=== PATIENT | male | born 1945 | race Caucasian/White ===

== ENCOUNTER → 2017-12-27 | Day surgery (SDC) | payer MEDICARE, OTHER ==
[2017-12-25 11:50] LABS: BASOPHILS % 0.7 % (0.0-1.0); EOSINOPHILS # (AUTO) 0.1 (0.0-0.4); EOSINOPHILS % 2.3 % (0.0-6.0); HEMATOCRIT 35.1 % (38.2-49.6); HEMOGLOBIN 12.5 g/dL (14.0-18.0); LYMPHOCYTES % 16.5 % (18.0-39.1); MEAN CORPUSCULAR HEMOGLOBIN 31.8 pg (28-32); MEAN CORPUSCULAR HGB CONC 35.6 g/dL (31-35); MEAN CORPUSCULAR VOLUME 89.3 fL (81-99); MONOCYTES # (AUTO) 0.6 (0.2-0.8); MONOCYTES % 9.1 % (4.4-11.3); NEUTROPHILS # (AUTO) 4.3 (2.1-6.9); NEUTROPHILS % 71.1 % (38.7-80.0); PLATELET COUNT 207 x10e3/uL (140-360); RED BLOOD COUNT 3.93 x10e6/uL (4.3-5.7); RED CELL DISTRIBUTION WIDTH 12.6 % (11.7-14.4)
[~2017-12-27] MED LIST: ACETAMINOPHEN325 M1 PO; AMLODIPINE BESY10 MG PO; AMOXICILLIN250 MG PO; ANUCORT-HC25 MG RC; CARVEDILOL12.5 MG PO; CATAPRES-TTS 11 EACH TD; CHOLESTYRAMINE L4 GM PO; FENOFIBRATE145 MG PO; FERRIC SULFATE1 GM PO; FLAGYL250 MG PO; FUROSEMIDE20 MG PO; GABAPENTIN100 MG PO; HUMALOG100 UNIT/3 SQ; LANTUS 3ML100 UNITS/ SQ; LIDOCAINE HCL 2% LOCAL INJ 5 ML SDV VIAL INJ ONE; LISINOPRIL10 MG PO; METFORMIN HCL1000 MG PO; MIDAZOLAM HCL 2 MG/2 ML VIAL ONE; MULTI-VITAMIN1 EACH PO; MUPIROCIN22 GM TOP; NIFEDIPINE ER30 M1 PO; NORVASC5 MG PO; PANTOPRAZOLE SO20 MG PO; PRAVASTATIN SOD40 MG PO; PROPOFOL IV EMULSION 10 MG/ML 50 ML VIAL ONE; QUINAPRIL HCL40 MG PO; SIMVASTATIN10 MG PO; SIMVASTATIN20 MG PO; SUCRALFATE1 GM PO; TRESIBA SQ; TRIAMCINOLONE A15 G2 TOP; ULTRAM50 MG PO; VANCOMYCIN HCL125 MG PO
--- NOTE | 2017-12-27 09:47 | Operative Report ---
DATE OF PROCEDURE: December 27, 2017 PROCEDURE PERFORMED: Esophagogastroduodenoscopy with biopsies. REFERRING PHYSICIAN: Dr. Elissa Curry INDICATIONS FOR EGD: History of Schmitz's esophagus. MEDICATION: Patient was done under MAC. Please see anesthesiologist note. PROCEDURE IN DETAIL: With the patient in left lateral decubitus position, the flexible fiberoptic Olympus gastroscope was introduced into the esophagus under direct visualization without any difficulty. There was some minimal erythema noted in distal esophagus. A minute tongue of velvety red mucosa was noted to extend proximally from the GE junction and biopsies were obtained. The scope was then advanced with ease into the stomach traversing a small sliding hiatal hernia. The mucosa overlying the antrum revealed some patchy intense erythema and moderate edema, and biopsies were obtained and sent to stain for H. pylori. Pylorus was of normal contour and shape. It was intubated with ease and the scope was advanced all the way to the second portion of the duodenum. The scope was then withdrawn slowly. Mucosa overlying the proximal second portion and the duodenal bulb appeared to be within normal limits. The scope was then withdrawn back into the stomach and retroflexed, and the mucosa overlying the fundus and the cardia appeared to be within normal limits. The scope was then straightened out. It was subsequently withdrawn. Patient tolerated the procedure well. IMPRESSION: 1. Schmitz's esophagus. 2. Small sliding hiatal hernia. 3. Gastritis, biopsied. Biopsy sent to stain for Helicobacter pylori. PLAN: Follow up histology. Continue Protonix 40 mg 1 p.o. q.a.m. a.c. Job#: [id number] cc:ELISSA UCRRY MD
== END | disposition home or self-care (01) ==
LOC: OR 07:38
PROVIDERS: ATTEND Internal Medicine Gastroenterology
DX: K22.70 Barrett's esophagus without dysplasia (principal); K29.70 Gastritis, unspecified, without bleeding; K21.9 Gastro-esophageal reflux disease without esophagitis; K44.9 Diaphragmatic hernia without obstruction or gangrene; J45.909 Unspecified asthma, uncomplicated; G47.33 Obstructive sleep apnea (adult) (pediatric); I10 Essential (primary) hypertension; E66.9 Obesity, unspecified; E11.9 Type 2 diabetes mellitus without complications; Z01.810 Encounter for preprocedural cardiovascular examination; Z01.812 Encounter for preprocedural laboratory examination; Z88.8 Allergy status to other drugs, medicaments and biological substances; Z79.4 Long term (current) use of insulin
CPT/HCPCS: 36415 ×2; 43239; 82948; 85025; 88305; 88312; 93005; J2001; J2250

== ENCOUNTER 2018-01-31 22:40 | Emergency (ER) | payer MEDICARE, OTHER ==
[~2018-01-31] VITALS: Ht 180.3 cm; Wt 93.0 kg
[~2018-01-31 22:40] MED LIST changes: -LIDOCAINE HCL 2% LOCAL INJ 5 ML SDV VIAL INJ ONE; -MIDAZOLAM HCL 2 MG/2 ML VIAL ONE; -PROPOFOL IV EMULSION 10 MG/ML 50 ML VIAL ONE
[2018-01-31] MEDS ORDERED: DEXTROSE 50% SYRINGE 50 ML IV STA (22:51)
[2018-01-31] MEDS ORDERED: DEXTROSE 50% SYRINGE 50 ML IV ONE (22:53)
[2018-01-31] MEDS ORDERED: DEXTROSE 10% 1,000 ML IV ONE (23:00)
[2018-01-31 23:44] LABS: BASOPHILS % 0.7 % (0.0-1.0); EOSINOPHILS # (AUTO) 0.1 (0.0-0.4); EOSINOPHILS % 2.5 % (0.0-6.0); HEMATOCRIT 36.2 % (38.2-49.6); LYMPHOCYTES # (AUTO) 1.2 (1.0-3.2); LYMPHOCYTES % 20.1 % (18.0-39.1); MEAN CORPUSCULAR HEMOGLOBIN 32.2 pg (28-32); MEAN CORPUSCULAR HGB CONC 35.9 g/dL (31-35); MEAN CORPUSCULAR VOLUME 89.6 fL (81-99); MONOCYTES # (AUTO) 0.6 (0.2-0.8); MONOCYTES % 9.6 % (4.4-11.3); NEUTROPHILS # (AUTO) 3.8 (2.1-6.9); NEUTROPHILS % 66.7 % (38.7-80.0); PLATELET COUNT 241 x10e3/uL (140-360); RED BLOOD COUNT 4.04 x10e6/uL (4.3-5.7); RED CELL DISTRIBUTION WIDTH 12.8 % (11.7-14.4)
[2018-01-31 23:59] LABS: ALANINE AMINOTRANSFERASE 34 IU/L (0-55); ALBUMIN 4.1 g/dL (3.5-5.0); ALBUMIN/GLOBULIN RATIO 1.2 (0.8-2.0); ALKALINE PHOSPHATASE 53 IU/L (40-150); ANION GAP 16.6 mmol/L (8-16); BLOOD UREA NITROGEN 21 mg/dL (7-26); BUN/CREATININE RATIO 18 (6-25); CARBON DIOXIDE 22 mmol/L (22-29); CHLORIDE 106 mmol/L (98-107); CREATININE, SERUM 1.18 mg/dL (0.72-1.25); EST GLOMERULAR FILTRATION RATE > 60 ML/MIN (60-); GLUCOSE 79 mg/dL (74-118); POTASSIUM 3.6 mmol/L (3.5-5.1); SODIUM 141 mmol/L (136-145)
== END 2018-02-01 04:18 | disposition home or self-care (01) ==
LOC: ER 22:40
DX: T38.3X1A Poisoning by insulin and oral hypoglycemic [antidiabetic] drugs, accidental (unintentional), initial encounter (principal); E11.9 Type 2 diabetes mellitus without complications; D64.9 Anemia, unspecified; K21.9 Gastro-esophageal reflux disease without esophagitis; E78.5 Hyperlipidemia, unspecified
CPT/HCPCS: 36415; 80053; 82948; 85025; 99284; J7799

== ENCOUNTER → 2019-01-16 | Day surgery (SDC) | payer MEDICARE, OTHER ==
[2019-01-13 12:37] LABS: BASOPHILS % 0.7 % (0.0-1.0); EOSINOPHILS # (AUTO) 0.2 (0.0-0.4); EOSINOPHILS % 3.6 % (0.0-6.0); HEMATOCRIT 35.2 % (38.2-49.6); HEMOGLOBIN 12.3 g/dL (14.0-18.0); LYMPHOCYTES # (AUTO) 0.9 (1.0-3.2); MEAN CORPUSCULAR HEMOGLOBIN 31.3 pg (28-32); MEAN CORPUSCULAR HGB CONC 34.9 g/dL (31-35); MEAN CORPUSCULAR VOLUME 89.6 fL (81-99); MONOCYTES # (AUTO) 0.4 (0.2-0.8); MONOCYTES % 7.3 % (4.4-11.3); NEUTROPHILS # (AUTO) 4.1 (2.1-6.9); NEUTROPHILS % 71.7 % (38.7-80.0); PLATELET COUNT 248 x10e3/uL (140-360); RED BLOOD COUNT 3.93 x10e6/uL (4.3-5.7); RED CELL DISTRIBUTION WIDTH 12.6 % (11.7-14.4)
[~2019-01-16] MED LIST changes: +ANUSOL-HC30 GM RC; +CICLOPIROX15 GM TOP; +CLOBETASOL PROP59 ML TOP; +CO Q-10100 MG PO; +COMPLETE MULTI1 EAC1 PO; +FENTANYL CITRATE/PF 100MCG/2 ML INJ ONE; +HYDROCORTISONE30 GM TOP; +HYOSCYAMINE 0.125 MG TAB ONE; +IRON PO; +LIDOCAINE HCL 2% LOCAL INJ 5 ML SDV VIAL INJ ONE; +MELOXICAM7.5 MG PO; +MIDAZOLAM HCL 2 MG/2 ML VIAL ONE; +PROPOFOL IV EMULSION 10 MG/ML 50 ML VIAL ONE; +VITAMIN B-121000 MC1 PO; +VITAMIN C250 M1 PO; +VITAMIN D1000 UNI1 PO
--- OUTSIDE RECORDS SUMMARY | 2019-01-16 07:50 | XMS REPORT | Continuity of Care Document ---
Author Author [facility] Interface Address Unknown Phone Unavailable Problems Problem Status Onset Date Classification Date Reported Comments Source Rectal bleeding Active 04/15/2016 Problem 02/01/2018 [facility] Weakness Active 04/15/2016 Problem 02/01/2018 [facility] Abdominal pain Active 03/05/2016 Problem 02/01/2018 [facility] Diarrhea Active 03/05/2016 Problem 02/01/2018 [facility] Hypokalemia Active 03/05/2016 Problem 02/01/2018 [facility] Leukocytosis Active 03/05/2016 Problem 02/01/2018 [facility] Anemia Active 01/30/2016 Problem 02/01/2018 [facility] Back pain Active 01/30/2016 Problem 02/01/2018 [facility] Cellulitis Active 01/30/2016 Problem 02/01/2018 [facility] Diabetes Active 01/30/2016 Problem 02/01/2018 [facility] Fever Active 01/30/2016 Problem 02/01/2018 [facility] Hypoglycemia Active 01/30/2016 Problem 02/01/2018 [facility] Medications Medication Details Route Status Patient Instructions Ordering Provider Order Date Source Acetaminophen 325 Mg Tablet, 650 Mg Oral As Needed Active 2017 [facility] Amlodipine Besylate 10 Mg Tablet, 10 Mg Oral Daily Active 2017 [facility] Ferric Sulfate 1 Gm Granules, 325 Mg Oral Three Times Daily With Meals Active 2017 [facility] Hydrocortisone Acetate (Anucort-Hc) 25 Mg Supp.rect, 25 Mg Rectal Twice A Day Active 2017 [facility] Insulin Glargine (Lantus 3ML Pen) 100 Units/1 Ml Inj, 40 Units Sub-Q Daily Active 2017 [facility] Insulin Glargine (Lantus 3ML Pen) 100 Units/1 Ml Inj, 45 Units Sub-Q Bedtime Active 2017 [facility] Multivitamin (Multi-Vitamin Daily) 1 Each Tablet, 1 Mg Oral Daily Active 2017 [facility] Quinapril Hcl 40 Mg Tablet, 40 Mg Oral Twice A Day Active 2017 [facility] Simvastatin 10 Mg Tablet, 10 Mg Oral Daily Active 2017 [facility] Tramadol Hcl (Ultram) 50 Mg Tablet, 50 Mg Oral Three Times A Day as needed for Pain Active 2017 [facility] Cholestyramine (Cholestyramine Light Packet) 4 Gm Pack, 4 Gm Oral Daily Active [facility] 03/13/2016 [facility] Metronidazole (Flagyl) 250 Mg Tablet, 500 Mg Oral Every 8 Hours Active [facility] 03/13/2016 [facility] Vancomycin Hcl 125 Mg Capsule, 250 Mg Oral Every 8 Hours Active [facility] 03/13/2016 [facility] Amlodipine Besylate (Norvasc) 5 Mg Tab, 10 Mg Oral Daily Active 12/29/2015 [facility] Simvastatin 20 Mg Tablet, 20 Mg Oral Daily Active 12/29/2015 [facility] Amoxicillin 250 Mg Capsule As Needed as needed for 1HR Prior To Dentist Active [facility] Carvedilol 12.5 Mg Tablet Twice A Day Active [facility] Clonidine (Catapres-Tts 1) 1 Each Patch.tdwk Wkly Active [place] [facility] Fenofibrate Nanocrystallized (Fenofibrate) 145 Mg Tablet Daily Active [facility] Furosemide 20 Mg Tablet Twice A Day Active [facility] Gabapentin 100 Mg Capsule Three Times A Day Active [facility] Insulin Lispro (Humalog) 100 Unit/1 Ml Insuln.pen Tid-Sliding Scale Active [facility] Lisinopril 10 Mg Tablet Daily Active [facility] Metformin Hcl 1,000 Mg Tablet Twice A Day Active [facility] Mupirocin 22 Gm Oint...g. Twice A Day Active [facility] Nifedipine (Nifedipine Er) 30 Mg Tab.er.24 Twice A Day Active [facility] Pantoprazole Sodium 20 Mg Tablet.dr Daily Active [facility] Pravastatin Sodium 40 Mg Tablet Daily Active [facility] Sucralfate 1 Gm Tablet Four Times Daily Active [facility] Tresiba Daily Active [facility] Triamcinolone Acetonide 15 Gm Cream..g. Twice A Day Active [facility] Allergies, Adverse Reactions, Alerts Substance Category Reaction Severity Reaction type Status Date Reported Comments Source Metronidazole Unknown Allergy to Substance Active 2017 [facility] Immunizations Immunization Date Given Site Status Last Updated Comments Source Results Order Name Results Value Reference Range Date Interpretation Comments Source Automated blood basophil count (count/volume) Automated blood basophil count (count/volume) 0.0 0.0 - 0.1 01/31/2018 [facility] Automated blood basophil count as percentage of total leukocytes Automated blood basophil count as percentage of total leukocytes 0.7 0.0 - 1.0 01/31/2018 [facility] Automated blood eosinophil count Automated blood eosinophil count 0.1 0.0 - 0.4 01/31/2018 [facility] Automated blood eosinophil count as percentage of total leukocytes Automated blood eosinophil count as percentage of total leukocytes 2.5 0.0 - 6.0 01/31/2018 [facility] Automated blood hematocrit (volume fraction) Automated blood hematocrit (volume fraction) 36.2 38.2 - 49.6 01/31/2018 [facility] Automated blood lymphocyte count as percentage ot total leukocytes Automated blood lymphocyte count as percentage ot total leukocytes 20.1 18.0 - 39.1 01/31/2018 [facility] Automated blood monocyte count as percentage of total leukocytes Automated blood monocyte count as percentage of total leukocytes 9.6 4.4 - 11.3 01/31/2018 [facility] Automated blood neutrophil count Automated blood neutrophil count 3.8 2.1 - 6.9 01/31/2018 [facility] Automated blood platelet count (count/volume) Automated blood platelet count (count/volume) 241 140 - 360 01/31/2018 [facility] Automated blood segmented neutrophil count as percentage of total leukocytes Automated blood segmented neutrophil count as percentage of total leukocytes 66.7 38.7 - 80.0 01/31/2018 [facility] Automated erythrocyte mean corpuscular hemoglobin (mass per erythrocyte) Automated erythrocyte mean corpuscular hemoglobin (mass per erythrocyte) 32.2 28 - 32 01/31/2018 [facility] Automated erythrocyte mean corpuscular hemoglobin concentration measurement (mass/volume) Automated erythrocyte mean corpuscular hemoglobin concentration measurement (mass/volume) 35.9 31 - 35 01/31/2018 [facility] Automated erythrocyte mean corpuscular volume Automated erythrocyte mean corpuscular volume 89.6 81 - 99 01/31/2018 [facility] Blood erythrocytes automated count (number/volume) Blood erythrocytes automated count (number/volume) 4.04 4.3 - 5.7 01/31/2018 [facility] Blood hemoglobin measurement (moles/volume) Blood hemoglobin measurement (moles/volume) 13.0 14.0 - 18.0 01/31/2018 [facility] Blood leukocytes automated count (number/volume) Blood leukocytes automated count (number/volume) 5.71 4.8 - 10.8 01/31/2018 [facility] Blood lymphocytes count (number/volume) Blood lymphocytes count (number/volume) 1.2 1.0 - 3.2 01/31/2018 [facility] Blood monocytes automated count (number/volume) Blood monocytes automated count (number/volume) 0.6 0.2 - 0.8 01/31/2018 [facility] Estimated glomerular filtration rate (GFR) determination Estimated glomerular filtration rate (GFR) determination null 60 01/31/2018 [facility] Glucose measurement Glucose measurement 79 74 - 118 01/31/2018 [facility] Plasma globulin measurement (mass/volume) Plasma globulin measurement (mass/volume) 3.3 2.3 - 3.5 01/31/2018 [facility] Serum or plasma alanine aminotransferase measurement (enzymatic activity/volume) Serum or plasma alanine aminotransferase measurement (enzymatic activity/volume) 34 0 - 55 01/31/2018 [facility] Serum or plasma albumin measurement (mass/volume) Serum or plasma albumin measurement (mass/volume) 4.1 3.5 - 5.0 01/31/2018 [facility] Serum or plasma albumin/globulin mass ratio Serum or plasma albumin/globulin mass ratio 1.2 0.8 - 2.0 01/31/2018 [facility] Serum or plasma alkaline phosphatase measurement (enzymatic activity/volume) Serum or plasma alkaline phosphatase measurement (enzymatic activity/volume) 53 40 - 150 01/31/2018 [facility] Serum or plasma anion gap Serum or plasma anion gap 16.6 8 - 16 01/31/2018 [facility] Serum or plasma calcium measurement (mass/volume) Serum or plasma calcium measurement (mass/volume) 10.0 8.4 - 10.2 01/31/2018 [facility] Serum or plasma carbon dioxide, total measurement (moles/volume) Serum or plasma carbon dioxide, total measurement (moles/volume) 22 22 - 29 01/31/2018 [facility] Serum or plasma chloride measurement (moles/volume) Serum or plasma chloride measurement (moles/volume) 106 98 - 107 01/31/2018 [facility] Serum or plasma creatinine measurement (mass/volume) Serum or plasma creatinine measurement (mass/volume) 1.18 0.72 - 1.25 01/31/2018 [facility] Serum or plasma potassium measurement (moles/volume) Serum or plasma potassium measurement (moles/volume) 3.6 3.5 - 5.1 01/31/2018 [facility] Serum or plasma protein measurement (mass/volume) Serum or plasma protein measurement (mass/volume) 7.4 6.5 - 8.1 01/31/2018 [facility] Serum or plasma sodium measurement (moles/volume) Serum or plasma sodium measurement (moles/volume) 141 136 - 145 01/31/2018 [facility] Serum or plasma total bilirubin measurement (mass/volume) Serum or plasma total bilirubin measurement (mass/volume) 0.6 0.2 - 1.2 01/31/2018 [facility] Serum or plasma urea nitrogen measurement (mass/volume) Serum or plasma urea nitrogen measurement (mass/volume) 21 7 - 26 01/31/2018 [facility] Serum or plasma urea nitrogen/creatinine mass ratio Serum or plasma urea nitrogen/creatinine mass ratio 18 6 - 25 01/31/2018 [facility] Red Cell Distribution Width 12.8 11.7 - 14.4 01/31/2018 [facility] IM GRANULOCYTES % 0.4 0.0 - 1.0 01/31/2018 [facility] Absolute Immature Granulocyte (auto 0.02 0 - 0.1 01/31/2018 [facility] Aspartate Amino Transf (AST/SGOT) 30 5 - 34 01/31/2018 [facility] Capillary blood glucose measurement by glucometer (mass/volume) Capillary blood glucose measurement by glucometer (mass/volume) 130 70 - 120 12/27/2017 [facility] Vital Signs Vital Sign Value Date Comments Source Encounters Location Location Details Encounter Type Encounter Number Reason For Visit Attending Provider ADM Date DC Date Status Source Outpatient [id number] [facility] 02/12/2017 Active [facility] Outpatient [id number] [facility] 02/27/2017 Active [facility] Outpatient [id number] [facility] 03/19/2017 Active [facility] Outpatient [id number] [facility] 04/16/2017 Active [facility] Outpatient [id number] [facility] 06/04/2017 Active [facility] Outpatient [id number] REBA MORALES 08/07/2017 Active [facility] Outpatient [id number] SANIA ZENG 09/05/2017 Active [facility] Registered Surgical Day Care [id number] TERRELL GARCIA MD 12/27/2017 [facility] Departed Emergency Room [id number] MARCIN DUDLEY MD 01/31/2018 02/01/2018 [facility] Outpatient [id number] BRENTON GTZ 03/06/2018 Active [facility] Procedures Procedure Code Date Perfomer Comments Source EGD BIOPSY SINGLE/MULTIPLE 09447 12/27/2017 JO[facility]
--- OUTSIDE RECORDS SUMMARY | 2019-01-16 07:50 | XMS REPORT | Summary of Care ---
Author Author ANURAG Garcia, RASHAUN Vanessa Unknown Address Unknown Phone Unavailable Care Team Providers Care Grocery Department Manager Name Role Phone ADOLFO Garcia, DAISY Unavailable Unavailable RASHAUN OSBORN M.D. Unavailable Unavailable ANTOINETTE WATSON, ELISSA Nielsen Unavailable Unavailable Adolfo WATSON, Daisy Unavailable Unavailable ANURAG WATSON [place], RASHAUN CARABALLO Unavailable Unavailable Unavailable Unavailable Functional Status Name Dates Details Functional status health issues are not documented Status: Name Dates Details Cognitive status health issues are not documented Status: Problems Name Dates Details Diarrhea (787.91, R19.7) Status: Active Back pain with radiation (724.5, M54.9) Status: Active Right foot drop (736.79, M21.371) Status: Active Cataract, left (366.9, H26.9) Status: Active Fatigue (780.79, R53.83) Status: Active Proliferative diabetic retinopathy, both eyes (250.50, E11.3593) Status: Active Flat foot (734, M21.40) Status: Active Osteoarthritis of ankle, 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 * Refills: 0 Active Carvedilol 25 MG Oral Tablet TAKE 1 TABLET TWICE DAILY. * Quantity: 180 Refills: 1 Active HumaLOG KwikPen 100 UNIT/ML Subcutaneous Solution Pen-injector INJECT 15 TO 30 UNITS UNDER THE SKIN THREE TIMES A DAY BEFORE MEALS. MAXIMUM JEM LY DOSE OF 90 UNITS. * Quantity: 6 Refills: 1 RASHAUN OSBORN M.D. * Start : 06-Nov-2017 Active 5 x 3 ML Pen metFORMIN HCl - 1000 MG Oral Tablet TAKE ONE TABLET BY MOUTH TWICE A DAY WITH FOOD * Quantity: 1 Refills: 1 RASHAUN OSBORN M.D. * Start : 28-May-2018 Active 180 Tablet Bottle Furosemide 40 MG Oral Tablet TAKE 1 TABLET TWICE DAILY PRN * Quantity: 60 Refills: 3 RASHAUN OSBORN M.D. Active Triamcinolone Acetonide 0.1 % External Cream APPLY INCH Twice daily PRN * Refills: 0 Active Tricor 145 MG Oral Tablet TAKE 1 TABLET DAILY. * Refills: 0 Active Multivitamins TABS take 1/2 tablet bid * Refills: 0 Active Co Q-10 100 MG Oral Capsule TAKE 1 CAPSULE DAILY * Refills: 0 Active Clonidine Patch 0.3MG 1 PATCH PER WEEK * Refills: 0 Active Mupirocin 2 % External Ointment APPLY INCH Twice daily * Refills: 0 Active 15 GM Tube Clobetasol Propionate 0.05 % External Cream APPLY SPARINGLY TO AFFECTED AREA(S) TWICE DAILY * Refills: 0 Active Ciclopirox Olamine 0.77 % External Cream * Refills: 0 Active OcuSoft Eye Wash SOLN daily * Refills: 0 Active 30 ML Bottle Probiotic CAPS TAKE 1 CAPSULE DAILY * Refills: 0 Active BD Pen Needle Lilian U/F 32G X 4 MM USE 1 NEEDLE 5 TIMES A DAY. * Quantity: 3 Refills: 1 RASHAUN OSBORN M.D. * Start : 08-Feb-2017 Active 200 Unit Box Gabapentin 100 MG Oral Capsule TAKE 1 CAPSULE 3 TIMES DAILY * Quantity: 90 Refills: 0 Active Tylenol CAPS TAKE CAPSULE TWICE DAILY * Refills: 0 Active Systane SOLN PRN * Refills: 0 Active 15 ML Bottle Aspercreme w/Lidocaine CREA * Refills: 0 Active Tresiba FlexTouch 200 UNIT/ML Subcutaneous Solution Pen-injector INJECT 80 UNITS UNDER THE SKIN EVERY NIGHT AT BEDTIME FOR BLOOD SUGAR LOWERING * Quantity: 4 Refills: 2 RASHAUN OSBORN M.D. * Start : 17-Oct-2018 Active 3 x 3 ML Pen Ferrous Sulfate 325 MG CAPS TAKE 1 CAPSULE TWICE DAILY. * Refills: 0 Active Saline SOLN Nasal spray. * Refills: 0 Active 360 ML Bottle Lisinopril 40 MG Oral Tablet TAKE 1 TABLET DAILY * Refills: 0 Active Pravastatin Sodium 40 MG Oral Tablet TAKE 1 TABLET DAILY * Refills: 0 Active 90 Tablet Bottle OneTouch Verio In Vitro Strip TEST THREE TIMES A DAY * Quantity: 100 Refills: 0 ANURAG Garcia, RASHAUN * Start : 22-Nov-2017 Active Vitamin C TABS * Refills: 0 Active Vitamin B12 TABS * Refills: 0 Active NIFEdipine CAPS TAKE 30 MG Twice daily * Refills: 0 Active OneTouch Delica Lancets 33G USE 1 LANCET TO TEST THREE TIMES A DAY * Quantity: 3 Refills: 0 RASHAUN OSBORN M.D. * Start : 03-Dec-2017 Active 100 Unit Box prednisoLONE Acetate 1 % Ophthalmic Suspension 4 drops daily * Refills: 0 Active 5 ML Bottle Procto-Med HC 2.5 % Rectal Cream * Refills: 0 Active Vitamin D3 2000 UNIT Oral Tablet Chewable * Refills: 0 Active Meloxicam 15 MG Oral Tablet TAKE 1 TABLET DAILY. * Quantity: 30 Refills: 2 ADOLFO Garcia, DAISY * Start : 04-Aug-2018 Active Allergies and Adverse Reactions Name Dates Details Flagyl TABS (Allergy) Status: Active metroNIDAZOLE TABS (Allergy) Status: Active Past Medical History Name Dates Details History of anemia (V12.3, Z86.2) Status: Resolved History of essential hypertension (V12.59, Z86.79) Status: Resolved History of hyperlipidemia (V12.29, Z86.39) Status: Resolved History of low back pain (V13.59, Z87.39) Status: Resolved History of Obstructive sleep apnea, adult (327.23, G47.33) Status: Resolved History of psoriasis (V13.3, Z87.2) Status: Resolved History of type 2 diabetes mellitus (V12.29, Z86.39) Status: Resolved Procedures Procedure Dates Details History of Lumbar laminectomy Completed History of Varicose vein sclerotherapy Completed Immunization Name Dates Details Pneumococcal polysaccharide vaccine, 23 valent on: 30-Apr-2016 Influenza on: 18-May-2018 Family History Name Dates Details Family history of diabetes mellitus (V18.0, Z83.3) Status: Active Family history of myocardial infarction (V17.3, Z82.49) Status: Active Name Dates Details Family history of diabetes mellitus (V18.0, Z83.3) Status: Active Family history of myocardial infarction (V17.3, Z82.49) Status: Active Family history of thyroid disease (V18.19, Z83.49) Status: Active Social History Name Dates Details - Status: Name Dates Details Never smoker Former smoker Vital Signs Date Test Result Details No Known Vitals to report Results Date Description Value Details Results not documented Plan of Care Name Dates Details Planned Observations Planned Goals not documented Planned Encounters Appointment; RASHAUN OSBORN M.D. On: 23-Feb-2019 15:20 Interventions Provided Medication Changes* OneTouch Verio In Vitro Strip - Renew Instructions Name Dates Details Instructions not documented Encounters Appointment; RASHAUN OSBORN M.D. Encounter Diagnosis: Problem not documented On: 30-Jan-2017 9:00 Appointment; RASHAUN OSBORN M.D. Encounter Diagnosis: Problem not documented On: 30-Apr-2017 9:00 Appointment; RASHAUN OSBORN M.D. Encounter Diagnosis: Problem not documented On: 28-Aug-2017 9:00 Appointment; RASHAUN OSBORN M.D. Encounter Diagnosis: Problem not documented On: 27-Nov-2017 9:00 Appointment; RASHAUN OSBORN M.D. Encounter Diagnosis: Problem not documented On: 03-Mar-2018 9:00 Appointment; RASHAUN OSBORN M.D. Encounter Diagnosis: Problem not documented On: 02-Jun-2018 9:20 Appointment; DAISY CRAMER M.D. Encounter Diagnosis: Problem not documented On: 04-Aug-2018 9:00 Appointment; RASHAUN OSBORN M.D. Encounter Diagnosis: Problem not documented On: 01-Sep-2018 9:20 Appointment; RASHAUN OSBORN M.D. Encounter Diagnosis: Problem not documented On: 01-Dec-2018 11:00
--- OUTSIDE RECORDS SUMMARY | 2019-01-16 07:50 | XMS REPORT | Clinical Summary ---
Author Author [facility] Organization [facility] Address Unknown Phone Unavailable Care Team Providers Care Collection Clerk Name Role Phone PCP Unavailable Allergies Not on File Medications Not on file Active Problems Not on file Encounters Care Team Description Date Type Specialty 04/17/2018 Clinical Corporate Wellness Support after 01/15/2018 Immunizations Name Dates Previously Given Next Due FLUCELVAX QUAD PF (0.5mL 04/17/2018 syringe) Social History Date Tobacco Use Types Packs/Day Years Used Never Assessed Sex Assigned at Date Recorded Not on file Industry Job Start Date Occupation Not on file Not on file Not on file Travel End Travel History Travel Start No recent travel history available. Last Filed Vital Signs Not on file Plan of Treatment Health Maintenance Due Date Last Done Comments COLONOSCOPY SCREENING 12/25/1997 SHINGLES VACCINES (#1) 12/25/1997 65+ PNEUMOCOCCAL VACCINE 12/25/2012 05/11/1991 (2 of 2 - PPSV23) INFLUENZA VACCINE 02/26/2019 04/17/2018, 04/20/2010, 04/21/2008, Additional history exists Results Not on fileafter 01/15/2018 Insurance Type Payer Benefit Subscriber ID Effective Phone Address Plan / Dates Group HMO CIGNA CIGNA OPEN xxxxxxxxxxx 2016-P ACCESS/NET resent WORK Medicare MEDICARE MEDICARE xxxxxxxxxx 2012-P SALAZAR, PART A AND resent [place] B Advance Directives Patient has advance care planning documents on file. For more information, tino leahy contact: Fernando Bautista [address] [place] [id number]
[2019-01-16 12:55] VITALS: BP 137/83
--- NOTE | 2019-01-16 13:33 | Operative Report ---
DATE OF PROCEDURE: 01/16/2019 SURGEON: Kareem Wallace MD PROCEDURE: Colonoscopy and polypectomy. INDICATIONS FOR COLONOSCOPY: Surveillance colonoscopy, personal history of colon polyps. MEDICATION: The patient was done under MAC, please see anesthesiologist's note. PROCEDURE IN DETAIL: With the patient in left lateral decubitus position, flexible fiberoptic Olympus colonoscope was inserted into the rectum with ease and advanced all the way to the cecum. It was then withdrawn slowly and mucosa overlying the cecum and ascending colon appeared to be within normal limits. One polyp was hot biopsied from the transverse colon. The descending appeared to be within normal limits. One polyp was hot biopsied from the sigmoid colon. The rectum appeared to be within normal limits. The scope was then retroflexed into the distal rectum and small internal hemorrhoids were noted, none of which was actively bleeding. The scope was then straightened out, it was subsequently withdrawn. The patient tolerated procedure well. IMPRESSION: 1. Transverse colon polyp, hot biopsied. 2. Sigmoid colon polyp, hot biopsied. 3. Internal hemorrhoids, none actively bleeding. PLAN: Follow up histology. Initiate high-fiber, low-fat diet. Initiate high-fiber supplement. The patient might benefit from a followup colonoscopy in 3 to 5 years. Kareem Wallace MD [facility] [place] /[id number] cc: Rashid Delgado MD
== END | disposition home or self-care (01) ==
LOC: OR 07:45
PROVIDERS: ATTEND Internal Medicine Gastroenterology
DX: Z09 Encounter for follow-up examination after completed treatment for conditions other than malignant neoplasm (principal); D12.3 Benign neoplasm of transverse colon; K64.8 Other hemorrhoids; K29.60 Other gastritis without bleeding; K28.9 Gastrojejunal ulcer, unspecified as acute or chronic, without hemorrhage or perforation; K22.70 Barrett's esophagus without dysplasia; K21.9 Gastro-esophageal reflux disease without esophagitis; D64.9 Anemia, unspecified; H91.90 Unspecified hearing loss, unspecified ear; G47.33 Obstructive sleep apnea (adult) (pediatric); E10.22 Type 1 diabetes mellitus with diabetic chronic kidney disease; I12.9 Hypertensive chronic kidney disease with stage 1 through stage 4 chronic kidney disease, or unspecified chronic kidney disease; N18.3 Chronic kidney disease, stage 3 (moderate); E78.00 Pure hypercholesterolemia, unspecified; Z88.8 Allergy status to other drugs, medicaments and biological substances; Z01.812 Encounter for preprocedural laboratory examination; Z79.4 Long term (current) use of insulin; Z79.84 Long term (current) use of oral hypoglycemic drugs; Z68.33 Body mass index [BMI] 33.0-33.9, adult
CPT/HCPCS: 36415 ×2; 45384; 82948; 85025; 88305; J2001; J2250; J2704; 45378; 45385; J3010